=== PATIENT | male | born 1950 | race Caucasian/White ===

== ENCOUNTER 2018-03-30 13:27 | Outpatient (REF) | payer MEDICARE, OTHER, SELFPAY ==
[2018-03-30 19:25] LABS: ALT 32 U/L (12-78); AST 22 U/L (15-37); Albumin 4.3 g/dL (3.4-5.0); Alkaline Phosphatase 89 U/L (46-116); Anion Gap 12.4 mmol/L (3-11); BUN 14 mg/dL (7-18); Bilirubin, Total 0.6 mg/dL (0.2-1.0); CO2 26.6 mmol/L (21.0-32.0); CREATININE 0.95 mg/dL (0.70-1.30); Calcium 9.3 mg/dL (8.5-10.1); Chloride 103 mmol/L (98-107); Cholesterol 180 mg/dL (50-200); Glucose 87 mg/dL (70-100); HDL Cholesterol 68 mg/dL (40-60); LDL CHOLESTEROL 104 mg/dL (<100); Potassium 3.7 mmol/L (3.5-5.1); Sodium 142 mmol/L (136-145); Total Protein 7.3 g/dL (6.4-8.2); Triglyceride 54 mg/dL (30-150)
== END 2018-03-30 13:47 ==
LOC: NCHCN 13:27
PROVIDERS: PCP Nurse Practitioner; Visit Provider Nurse Practitioner
DX: I10 Essential (primary) hypertension (principal); E78.5 Hyperlipidemia, unspecified
CPT/HCPCS: 80053; 80061; 83721

== ENCOUNTER 2019-05-08 09:44 | Outpatient (REF) | payer MEDICARE, OTHER, SELFPAY ==
[2019-05-08 12:36] LABS: ALT 28 U/L (16-63); AST 16 U/L (15-37); Alkaline Phosphatase 77 U/L (46-116); BUN 14 mg/dL (7-18); Bilirubin, Total 0.9 mg/dL (0.2-1.0); CREATININE 0.98 mg/dL (0.70-1.30); Calcium 9.4 mg/dL (8.5-10.1); Calculated LDL 83 mg/dL; Chloride 106 mmol/L (98-107); Cholesterol 172 mg/dL (<200); Glucose 118 mg/dL (74-106); HDL Cholesterol 71 mg/dL (40-60); Potassium 3.8 mmol/L (3.5-5.1); Sodium 144 mmol/L (136-145); Triglyceride 91 mg/dL (<150)
== END 2019-05-08 10:04 ==
LOC: NCHCN 09:44
PROVIDERS: PCP Nurse Practitioner; Visit Provider Nurse Practitioner
DX: I10 Essential (primary) hypertension (principal); E78.5 Hyperlipidemia, unspecified
CPT/HCPCS: 80053; 80061

== ENCOUNTER 2020-09-22 15:20 | Outpatient (REF) | payer MEDICARE, OTHER, SELFPAY ==
[2020-09-22 14:23] LABS: ALT 31 U/L (16-63); AST 19 U/L (15-37); Alkaline Phosphatase 85 U/L (46-116); Anion Gap 11.3 mmol/L (3-11); BUN 13 mg/dL (7-18); Bilirubin, Total 0.9 mg/dL (0.2-1.0); CO2 28.7 mmol/L (21.0-32.0); Calcium 9.6 mg/dL (8.5-10.1); Calculated LDL 74 mg/dL (<100); Chloride 105 mmol/L (98-107); Cholesterol 154 mg/dL (<200); Glucose 87 mg/dL (74-106); HDL Cholesterol 59 mg/dL (40-60); Sodium 145 mmol/L (136-145); Total Protein 7.3 g/dL (6.4-8.2); Triglyceride 106 mg/dL (<150)
[2020-09-23 10:40] LABS: HIV-1/2 Ag & Ab Screen Negative (Negative)
[2020-09-23 10:52] LABS: Hepatitis C Ab w Rflx HCV PCR Negative (Negative)
== END 2020-09-22 15:21 | disposition home or self-care (01) ==
LOC: NCHCN 15:20
PROVIDERS: PCP Nurse Practitioner; Visit Provider Nurse Practitioner Family
DX: I10 Essential (primary) hypertension (principal); E78.5 Hyperlipidemia, unspecified; Z11.4 Encounter for screening for human immunodeficiency virus [HIV]; Z11.59 Encounter for screening for other viral diseases
CPT/HCPCS: 80053; 80061; 86803; 87389

== ENCOUNTER 2021-11-02 17:23 | Outpatient (REF) | payer MEDICARE, OTHER, SELFPAY ==
[2021-11-02 19:31] LABS: HCT 45.9 % (40.0-50.0); HGB 15.3 g/dL (13.5-17.5); MCH 29.8 pg (27.0-33.0); MCHC 33.3 % (32.0-36.0); MCV 90 fL (80-95); Platelet Count 202 10^3/uL (130-400); RBC 5.13 10^6/uL (4.36-5.78); RDW 12.4 % (11.8-14.1); RDW-SD 40.7 fL
[2021-11-02 20:15] LABS: ALT 38 U/L (16-63); AST 19 U/L (15-37); Albumin 3.8 g/dL (3.4-5.0); Alkaline Phosphatase 92 U/L (46-116); Anion Gap 8.9 mmol/L (3-11); BUN 16 mg/dL (7-18); Bilirubin, Total 0.5 mg/dL (0.2-1.0); CO2 27.1 mmol/L (21.0-32.0); Calcium 9.1 mg/dL (8.5-10.1); Calculated LDL 107 mg/dL (<100); Chloride 107 mmol/L (98-107); Cholesterol 184 mg/dL (<200); Glucose 89 mg/dL (74-106); HDL Cholesterol 61 mg/dL (40-60); Potassium 3.8 mmol/L (3.5-5.1); Sodium 143 mmol/L (136-145); TSH (W/Ref FT4) 1.84 uIU/mL (0.36-3.74); Total Protein 7.6 g/dL (6.4-8.2); Triglyceride 80 mg/dL (<150)
== END 2021-11-02 17:24 | disposition home or self-care (01) ==
LOC: NCHCN 17:23
PROVIDERS: PCP Nurse Practitioner; Visit Provider Nurse Practitioner Family
DX: I10 Essential (primary) hypertension (principal); E78.5 Hyperlipidemia, unspecified; F41.9 Anxiety disorder, unspecified; R63.5 Abnormal weight gain
CPT/HCPCS: 80053; 80061; 85027; 84443

== ENCOUNTER 2022-10-29 13:36 | Outpatient (REF) | payer MEDICARE, SELFPAY | END 2022-10-29 13:37 | disposition home or self-care (01) | LOC: LBN 13:36 | PROVIDERS: PCP Nurse Practitioner; Visit Provider Physician Assistant Medical | DX: J02.9 Acute pharyngitis, unspecified (principal) | CPT/HCPCS: 87070 ==

== ENCOUNTER 2023-01-18 17:11 | Outpatient (REF) | payer MEDICARE, SELFPAY ==
[2023-01-18 16:40] LABS: Abs Immature Grans 0.01 10^3/uL (0.0-0.06); Absolute Basophil Count 0.08 10^3/uL (0.0-0.2); Absolute Eosinophil Count 0.06 10^3/uL (0.0-0.7); Absolute Lymphocyte Count 1.52 10^3/uL (1.2-3.4); Absolute Monocyte Count 0.62 10^3/uL (0.1-0.8); Absolute Neutrophil Count 4.31 10^3/uL (1.2-6.7); Basophils % 1.2; Eosinophils % 0.9; HCT 44.2 % (40.0-50.0); Immature Grans % 0.2; MCH 30.4 pg (27.0-33.0); MCHC 33.9 % (32.0-36.0); MCV 90 fL (80-95); Monocytes % 9.4; Neutrophils % 65.3; Platelet Count 197 10^3/uL (130-400); RBC 4.93 10^6/uL (4.36-5.78); RDW 12.1 % (11.8-14.1); RDW-SD 39.9 fL
[2023-01-18 17:32] LABS: RBC Morphology Normal
[2023-01-18 17:33] LABS: Diff Comment PLT Morph Reviewed
[2023-01-18 18:31] LABS: ALT 20 U/L (16-63); AST 17 U/L (15-37); Alkaline Phosphatase 72 U/L (46-116); Anion Gap 7.5 mmol/L (3-11); BUN 17 mg/dL (7-18); Bilirubin, Total 1.2 mg/dL (0.2-1.0); CO2 29.5 mmol/L (21.0-32.0); Calcium 9.6 mg/dL (8.5-10.1); Calculated LDL 92 mg/dL (<100); Chloride 102 mmol/L (98-107); Cholesterol 161 mg/dL (<200); Estimated GFR 80.47 (mL/min/1.73m2); Glucose 87 mg/dL (74-106); HDL Cholesterol 55 mg/dL (40-60); Potassium 3.5 mmol/L (3.5-5.1); Sodium 139 mmol/L (136-145); TSH (W/Ref FT4) 0.98 uIU/mL (0.36-3.74); Total Protein 7.3 g/dL (6.4-8.2); Triglyceride 73 mg/dL (<150)
== END 2023-01-18 17:12 | disposition home or self-care (01) ==
LOC: NCHCN 17:11
PROVIDERS: PCP Nurse Practitioner; Visit Provider Nurse Practitioner Family
DX: I10 Essential (primary) hypertension (principal); E78.5 Hyperlipidemia, unspecified; F41.8 Other specified anxiety disorders; E66.8 Other obesity; K21.9 Gastro-esophageal reflux disease without esophagitis; Z68.35 Body mass index [BMI] 35.0-35.9, adult; Z51.81 Encounter for therapeutic drug level monitoring
CPT/HCPCS: 80053; 80061; 84443; 85025

== ENCOUNTER 2024-02-20 15:00 | Outpatient (REF) | payer MEDICARE, SELFPAY ==
[2024-02-20 15:25] LABS: HCT 42.1 % (40.0-50.0); HGB 14.5 g/dL (13.5-17.5); MCH 31.4 pg (27.0-33.0); MCHC 34.4 % (32.0-36.0); MCV 91 fL (80-95); Platelet Count 177 10^3/uL (130-400); RBC 4.62 10^6/uL (4.36-5.78); RDW 12.6 % (11.8-14.1); RDW-SD 41.6 fL
[2024-02-20 15:38] LABS: ALT 15 U/L (16-63); AST 20 U/L (15-37); Albumin 3.8 g/dL (3.4-5.0); Anion Gap 5.8 mmol/L (3-11); BUN 15 mg/dL (7-18); CO2 30.2 mmol/L (21.0-32.0); Calcium 9.5 mg/dL (8.5-10.1); Calculated LDL 71 mg/dL (<100); Chloride 104 mmol/L (98-107); Cholesterol 152 mg/dL (<200); Estimated GFR 79.47 (mL/min/1.73m2); Glucose 98 mg/dL (74-106); HDL Cholesterol 72 mg/dL (40-60); Sodium 140 mmol/L (136-145); Total Protein 7.5 g/dL (6.4-8.2); Triglyceride 49 mg/dL (<150)
[2024-02-20 15:51] LABS: Alkaline Phosphatase 78 U/L (46-116)
== END 2024-02-20 15:01 | disposition home or self-care (01) ==
LOC: NCHCN 15:00
PROVIDERS: PCP Nurse Practitioner Family; Visit Provider Nurse Practitioner Family
DX: I10 Essential (primary) hypertension (principal)
CPT/HCPCS: 80053; 80061; 85027

== ENCOUNTER 2025-02-14 13:54 | Outpatient (CLI) | payer MEDICARE, SELFPAY ==
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
== END 2025-02-14 14:14 ==
LOC: DI 13:56
PROVIDERS: PCP Nurse Practitioner Family; Visit Provider Physician Assistant
DX: S89.91XA Unspecified injury of right lower leg, initial encounter (principal); X58.XXXA Exposure to other specified factors, initial encounter
CPT/HCPCS: 73590; 73610; 73630

== ENCOUNTER 2025-02-20 10:17 | Outpatient (CLI) | payer MEDICARE, SELFPAY ==
[2025-02-20 14:04] LABS: Abs Immature Grans 0.02 10^3/uL (0.0-0.06); HCT 47.1 % (40.0-50.0); HGB 15.6 g/dL (13.5-17.5); Immature Grans % 0.3 %; MCH 31.1 pg (27.0-33.0); MCHC 33.1 % (32.0-36.0); MCV 94 fL (80-95); MPV 13.7 fL (8.0-11.0); Platelet Count 184 10^3/uL (130-400); RBC 5.01 10^6/uL (4.36-5.78); RDW 12.2 % (11.8-14.1); RDW-SD 42.5 fL; WBC 6.38 10^3/uL (4.4-10.8)
[2025-02-21 11:37] LABS: Lyme Ab w Rflx to Lyme Confirm Negative (Negative)
[2025-02-22 22:39] LABS: B. miyamotoi PCR Negative (Negative); Babesia divergens/MO-1 Negative (Negative); Ehrlichia muris eauclairensis Negative (Negative)
== END 2025-02-20 10:18 | disposition home or self-care (01) ==
LOC: LOS 10:21
PROVIDERS: PCP Nurse Practitioner Family; Visit Provider Nurse Practitioner Family
DX: L03.90 Cellulitis, unspecified (principal); R53.83 Other fatigue
CPT/HCPCS: 36415; 87798; 85025; 86618

== ENCOUNTER 2025-05-20 16:15 | Outpatient (REF) | payer MEDICARE, SELFPAY ==
[2025-05-20 18:04] LABS: HCT 45.7 % (40.0-50.0); HGB 15.2 g/dL (13.5-17.5); MCH 30.9 pg (27.0-33.0); MCHC 33.3 % (32.0-36.0); MCV 93 fL (80-95); Platelet Count 187 10^3/uL (130-400); RBC 4.92 10^6/uL (4.36-5.78); RDW 12.3 % (11.8-14.1); RDW-SD 42.2 fL; WBC 7.30 10^3/uL (4.4-10.8)
[2025-05-20 18:24] LABS: ALT 17 U/L (10-49); AST 20 U/L (<34); Albumin 4.2 g/dL (3.2-5.0); Alkaline Phosphatase 92 U/L (46-116); Anion Gap 11.7 mmol/L (3-11); BUN 16 mg/dL (9-23); Bilirubin, Total 0.9 mg/dL (0.2-1.2); CO2 26.3 mmol/L (20.0-31.0); Calcium 9.2 mg/dL (8.3-10.6); Chloride 108 mmol/L (98-107); Cholesterol 160 mg/dL (<200); Glucose 102 mg/dL (74-106); HDL Cholesterol 71 mg/dL (>or=40); Potassium 3.6 mmol/L (3.5-5.1); Sodium 146 mmol/L (136-145); Total Protein 6.9 g/dL (5.7-8.2)
[2025-05-21 18:23] LABS: PSA, Screening 7.5 ng/mL (<=6.5)
== END 2025-05-20 16:16 | disposition home or self-care (01) ==
LOC: NCHCN 16:15
PROVIDERS: PCP Nurse Practitioner Family; Visit Provider Nurse Practitioner Family
DX: R39.198 Other difficulties with micturition (principal); I10 Essential (primary) hypertension; E78.5 Hyperlipidemia, unspecified; Z68.35 Body mass index [BMI] 35.0-35.9, adult
CPT/HCPCS: 80053; 80061; 84153; 85027